=== PATIENT | male | born 1955 | race Caucasian/White ===

== ENCOUNTER → 2020-07-05 | Outpatient (CLI) | payer OTHER, MEDICARE ==
[~2020-07-05] MED LIST: ASPI325; ASPI81CH PO; Aspir 8181 MG PO; DOXE10 PO; IBUP800 PO; LOSA50 PO; LOSARTAN POTAS100 MG PO; Lisinopril2.5 MG PO; NITR.4SL SL; Norco 5-325 Ta1 EACH PO; OMEP20ER PO; Omeprazole20 M1 PO; PRAV20 PO; PREG25 PO; PREG75 PO; Percocet 5-3251 EACH PO; Pravachol40 MG PO; Pravastatin Sod40 MG PO; TUMS DUAL ACTI1 EACH PO; TUMS X-STR300 MG; Zofran Odt8 MG SL
[2020-07-07 13:12] LABS: ADENOVIRUS F 40/41 Not Detected (Not Detected); ASTROVIRUS Detected (Not Detected); C DIFFICILE TOXIN A/B Not Detected (Not Detected); CAMPYLOBACTER Not Detected (Not Detected); CRYPTOSPORIDIUM Not Detected (Not Detected); CYCLOSPORA CAYETANENSIS Not Detected (Not Detected); ENTAMOEBA HISTOLYTICA Not Detected (Not Detected); ENTEROAGGREGATIVE E COLI Not Detected (Not Detected); ENTEROPATHOGENIC E COLI Not Detected (Not Detected); ENTEROTOXIGENIC E COLI Not Detected (Not Detected); GIARDIA LAMBLIA Not Detected (Not Detected); NOROVIRUS GI/GII Not Detected (Not Detected); PLESIOMONAS SHIGELLOIDES Not Detected (Not Detected); ROTAVIRUS A Not Detected (Not Detected); SALMONELLA Not Detected (Not Detected); SAPOVIRUS Not Detected (Not Detected); SHIGA-TOXIN-PRODUCING E COLI Not Detected (Not Detected); SHIGELLA/ENTEROINVASIVE E COLI Not Detected (Not Detected); VIBRIO Not Detected (Not Detected); VIBRIO CHOLERAE Not Detected (Not Detected); YERSINIA ENTEROCOLITICA Not Detected (Not Detected)
== END | disposition home or self-care (01) ==
LOC: LAB 16:10 → LAB SHORT 16:10 → LAB FUT 07-04 14:10
PROVIDERS: Internal Medicine Gastroenterology
DX: R19.7 Diarrhea, unspecified (principal); R10.84 Generalized abdominal pain
CPT/HCPCS: 0097U

== ENCOUNTER 2020-11-21 07:52 | Day surgery (SDC) | payer OTHER, MEDICARE ==
[~2020-11-21] VITALS: Ht 185.4 cm; Wt 104.8 kg
--- NOTE | 2020-11-21 08:59 | NUR ---
Ambulatory in Day Surgery History, Chart, Medications and Allergies reviewed before start of procedure. Lungs clear T/O to Auscultation. SITE CLIPPED AND PREPPED. MED ALLERGIES CONFIRMED c DR. SINGH, ABX CHANGED.
--- NOTE | 2020-11-21 13:33 | NUR ---
PT ARRIVED TO THE ROOM FROM PACU AT 1300. PT IS ALERT, ORIENTED AND PLEASANT. PT DENIES PAIN. HE HAD SPINAL ANESTHESIA, PT STILL HAS NO SENSATION TO BLE OR MOVEMENT R/T SPINAL ANESTHESIA. PT DENIES NAUSEA. VSS. WILL CONTINUE TO MONITOR.
--- NOTE | 2020-11-21 16:12 | NUR ---
SHIFT SUMMARY PT IS POD#0 FROM L TKA WITH DR. SINGH. PT DENIES PAIN. HE HAS REGAINED SENSATION AND MOVEMENT IN BLE. PT IS TOLERATING PO. HE IS WORKING WITH PHYSICAL THERAPY. VSS. WILL MONITOR UNTIL REPORT TO ONCOMING RN.
--- NOTE | 2020-11-22 04:15 | NUR ---
SHIFT SUMMARY: PT POD#1 FOR LT TKA. AQUACEL+JIAN WRAP C/D/I WITH POLAR PACK IN PLACE. PAIN BEING MANAGED WITH 10MG OXY AND SCHEDULED TORADOL+TYLENOL PER EMAR. PT RATING PAIN 2/10 ON PAIN SCALE. PT AMBULATING TO BATHROOM AND IN HALLWAY WITH 1 ASSIST AND FWW+GB. TOLERATING PO T/O SHIFT AND DENIES N/V. VOIDING WELL. ABX COMPLETE. PLAN FOR PHYSICAL THERAPY AND POSSIBLE DISCHARGE TODAY.
[2020-11-22 05:06] LABS: BASOPHILS ABSOLUTE AUTO 0.02 K/mm3 (0.00-0.23); BASOPHILS PERCENT AUTO 0 % (0-2); EOSINOPHILS PERCENT AUTO 0 % (0-6); Hematocrit 37.3 % (37.0-53.0); Hemoglobin 12.7 g/dL (13.5-17.5); IMMATURE GRAN ABSOLUTE AUTO 0.11 K/mm3 (0.00-0.10); IMMATURE GRAN PERCENT AUTO 1 % (0-1); LYMPHOCYTES PERCENT AUTO 7 % (21-46); MONOCYTES ABSOLUTE AUTO 0.79 K/mm3 (0.16-1.47); MONOCYTES PERCENT AUTO 4 % (4-13); Mean Corpuscular HGB 29.7 pg (26.0-34.0); Mean Corpuscular Volume 87 fL (80-100); Mean Platelet Volume 9.9 fL (9.1-12.4); NEUTROPHILS ABSOLUTE AUTO 17.49 K/mm3 (1.96-9.15); NEUTROPHILS PERCENT AUTO 89 % (41-73); Platelet Count 239 K/mm3 (150-400); RDW Coefficient Variation 12.6 % (11.7-14.2); Red Blood Cell Count 4.28 M/mm3 (4.30-5.90); White Blood Cell Count 19.71 K/mm3 (4.00-11.30)
[2020-11-22 05:39] LABS: Anion Gap 5 mmol/L (6-16); Blood Urea Nitrogen 17 mg/dL (8-24); Bun/Creatinine Ratio 23.3 (12.0-20.0); CO2, Blood 28 mmol/L (21-32); Calcium, Blood 8.2 mg/dL (8.5-10.1); Chloride, Blood 107 mmol/L (98-108); Creatinine, Blood 0.73 mg/dL (0.60-1.20); Glomerular Filtration Rate >60 (60-); Glucose, Blood 131 mg/dL (70-99); Potassium, Blood 4.7 mmol/L (3.5-5.5); Sodium, Blood 140 mmol/L (136-145)
--- NOTE | 2020-11-22 07:32 | NUR ---
ASSUMED CARE: PT RESTING QUIETLY IN RECLINER AT THIS TIME WITH ICE PACK IN PLACE. DENIES NEEDS OR CONCERNS. PLAN IS FOR THERAPY THIS AM THEN HOME LATER TODAY.
--- NOTE | 2020-11-22 10:34 | NUR ---
PHYSICAL THERAPIST WITH PT IN ORTHO GYM AT THIS TIME.
--- NOTE | 2020-11-22 11:42 | NUR ---
PHYSICAL THERAPY APPROVED PT FOR DISCHARGE. IV DC'D WNL. PT GIVEN EXTRA AQUACEL DRESSINGS AND WRITTEN PRESCRIPTIONS FROM DR SINGH. GIVEN INSTRUCTIONS ON WOUND CARE AND FOLLOW UP APPOINTMENTS. DENIED FURTHER NEEDS OR CONCERNS. ESCORTED OUT VIA WHEEL CHAIR BY HOSPITAL STAFF
== END 2020-11-22 11:18 | disposition home or self-care (01) ==
LOC: ORSCMMR 07:52 → ORD 09:45 → SURS 12:31 → ORSCMMR 11-22 11:18
PROVIDERS: Orthopaedic Surgery
PROC: 8E0Y0CZ Robotic Assisted Procedure of Lower Extremity, Open Approach (ICD-10-PCS; principal; 2020-11-21 08:30)
PROC: 0SRD0JA Replacement of Left Knee Joint with Synthetic Substitute, Uncemented, Open Approach (ICD-10-PCS; principal; 2020-11-21 08:30)
DX: M17.12 Unilateral primary osteoarthritis, left knee (principal); Z23 Encounter for immunization; I10 Essential (primary) hypertension; G47.33 Obstructive sleep apnea (adult) (pediatric); Z87.891 Personal history of nicotine dependence; Z79.899 Other long term (current) drug therapy; Z79.82 Long term (current) use of aspirin; K21.9 Gastro-esophageal reflux disease without esophagitis
CPT/HCPCS: 27447; S2900; 36415; 73560-LT; 80048; 85025; 94762; 97110; 97116; 97162; A9270; C1776; J0171; J0735; J1100; J1885; J2250; J2370; J2405; J2704; J2795; J3010; J7120; Q2038

== ENCOUNTER 2021-07-10 06:06 | Day surgery (SDC) | payer OTHER, MEDICARE ==
[~2021-07-10] VITALS: Ht 185.4 cm; Wt 107.3 kg
[~2021-07-10 06:06] MED LIST changes: +CHLO25B PO; +HYDACE10B PO
--- NOTE | 2021-07-10 06:28 | NUR ---
History, Chart, Medications and Allergies reviewed before start of procedure. Patient confirms NPO status and agrees with scheduled surgery. Lungs clear T/O to Auscultation.
--- NOTE | 2021-07-10 07:22 | NUR ---
PATIENT STATES HE LEFT HIS PARTIAL DENTURES AT HOME.
--- NOTE | 2021-07-10 10:30 | NUR ---
ARRIVAL TO SURGICAL FLOOR PT ARRIVES IN HOSP BED. ALERT, ORIENTED, PLEASANT. DENIES PAIN R/T SPINAL. UNABLE TO MOVE BLE OR WIGGLE TOES. FLUIDS & SNAKCS OFFERED. PT CALLS ON CELL PHONE & DENIES NEEDS. VSS.
[2021-07-10] MEDS ORDERED: Percocet 5-3251 EACH PO (14:04)
--- NOTE | 2021-07-10 18:40 | NUR ---
SHIFT SUMMARY PT HAS DONE WELL. STRONG SPINAL BUT ABLE TO GET UP TO CHAIR w/ THERAPY & AMBULATE THIS AFTERNOON. INCREASE IN PAIN AFTER THERAPY SESSION. BETTER CONTROLLED NOW. EATING, DRINKING, & VOIDING.
--- NOTE | 2021-07-11 03:29 | NUR ---
SHIFT SUMMARY A/OX4. POD1 R TOTAL KNEE ARTHROPLASTY, AQUACEL AND JIAN WRAP IN PLACE, C/D/I. VITALS STABLE. NO NUMBNESS OR TINGLING REPORTED. PT HAS AMBULATED AND IS TOLERATING PO INTAKE, NO N/V. TOLERATING PAIN WITH PO PAIN MEDICATIONS. VOIDING WELL. WILL REPORT TO ONCOMING RN.
[2021-07-11 04:38] LABS: BASOPHILS ABSOLUTE AUTO 0.02 K/mm3 (0.00-0.23); BASOPHILS PERCENT AUTO 0 % (0-2); EOSINOPHILS ABSOLUTE AUTO 0.01 K/mm3 (0.00-0.68); EOSINOPHILS PERCENT AUTO 0 % (0-6); Hematocrit 37.7 % (37.0-53.0); Hemoglobin 12.8 g/dL (13.5-17.5); IMMATURE GRAN ABSOLUTE AUTO 0.07 K/mm3 (0.00-0.10); IMMATURE GRAN PERCENT AUTO 0 % (0-1); LYMPHOCYTES ABSOLUTE AUTO 1.61 K/mm3 (0.84-5.20); LYMPHOCYTES PERCENT AUTO 10 % (21-46); MONOCYTES ABSOLUTE AUTO 0.77 K/mm3 (0.16-1.47); MONOCYTES PERCENT AUTO 5 % (4-13); Mean Corpuscular HGB 29.3 pg (26.0-34.0); Mean Corpuscular Volume 86 fL (80-100); Mean Platelet Volume 9.8 fL (9.1-12.4); NEUTROPHILS PERCENT AUTO 85 % (41-73); Platelet Count 245 K/mm3 (150-400); RDW Standard Deviation 40.8 fL (35.1-46.3); Red Blood Cell Count 4.37 M/mm3 (4.30-5.90); White Blood Cell Count 16.88 K/mm3 (4.00-11.30)
[2021-07-11 05:23] LABS: Anion Gap 5 mmol/L (6-16); Blood Urea Nitrogen 16 mg/dL (8-24); CO2, Blood 29 mmol/L (21-32); Chloride, Blood 102 mmol/L (98-108); Creatinine, Blood 0.89 mg/dL (0.60-1.20); Glomerular Filtration Rate >60 (60-); Glucose, Blood 157 mg/dL (70-99); Potassium, Blood 4.5 mmol/L (3.5-5.5); Sodium, Blood 136 mmol/L (136-145)
--- NOTE | 2021-07-11 11:05 | NUR ---
DISCHARGE PT HAS CLEARED THERAPY. PAIN WELL CONTROLLED. EATING, DRINKING, & VOIDING WELL. DRSGS, SCRIPT, & POLAR PACK SENT w/ PT. ESCORTED OUT VIA W/C.
== END 2021-07-11 11:12 | disposition home or self-care (01) ==
LOC: ORSCMMR 06:06 → ORD 07:30 → SURS 10:16 → ORSCMMR 07-11 11:12
PROVIDERS: Orthopaedic Surgery
PROC: 8E0Y0CZ Robotic Assisted Procedure of Lower Extremity, Open Approach (ICD-10-PCS; principal; 2021-07-10 07:30)
PROC: 0SRC0JA Replacement of Right Knee Joint with Synthetic Substitute, Uncemented, Open Approach (ICD-10-PCS; principal; 2021-07-10 07:30)
DX: M17.11 Unilateral primary osteoarthritis, right knee (principal); I10 Essential (primary) hypertension; Z87.891 Personal history of nicotine dependence; G47.33 Obstructive sleep apnea (adult) (pediatric); K21.9 Gastro-esophageal reflux disease without esophagitis; Z79.82 Long term (current) use of aspirin; Z79.899 Other long term (current) drug therapy
CPT/HCPCS: 27447; S2900; 36415; 73560-RT; 80048; 85025; 94762; 97110; 97110-CQ; 97116-CQ; 97162; 97530-CQ; A9270; C1776; J0171; J0735; J1100; J1170; J1885; J2250; J2370; J2405; J2704; J2795; J3010; J7120

== ENCOUNTER → 2022-03-20 | Outpatient (CLI) | payer OTHER, MEDICARE | END | disposition home or self-care (01) | LOC: LAB SHORT 11:40 → LAB 11:40 | DX: N45.1 Epididymitis (principal) | CPT/HCPCS: 87086 ==

== ENCOUNTER 2022-09-16 13:02 | Day surgery (SDC) | payer OTHER, MEDICARE ==
[~2022-09-16] VITALS: Ht 185.4 cm; Wt 102.1 kg
[2022-09-16] MEDS ORDERED: METF500 (14:36)
[2022-09-16] MEDS ORDERED: TERB250 (14:36)
[2022-09-16] MEDS ORDERED: IBUP200 (14:37)
== END 2022-09-16 15:47 | disposition home or self-care (01) ==
LOC: ORSCSDS 13:02
PROVIDERS: Internal Medicine Gastroenterology
PROC: 0DJD8ZZ Inspection of Lower Intestinal Tract, Via Natural or Artificial Opening Endoscopic (ICD-10-PCS; principal; 2022-09-16 14:30)
DX: Z12.11 Encounter for screening for malignant neoplasm of colon (principal); Z86.010 Personal history of colon polyps; K57.30 Diverticulosis of large intestine without perforation or abscess without bleeding; G47.30 Sleep apnea, unspecified; E11.9 Type 2 diabetes mellitus without complications; I10 Essential (primary) hypertension; Z87.891 Personal history of nicotine dependence; E66.9 Obesity, unspecified; Z68.30 Body mass index [BMI] 30.0-30.9, adult; Z79.82 Long term (current) use of aspirin; Z79.84 Long term (current) use of oral hypoglycemic drugs; Z79.899 Other long term (current) drug therapy
CPT/HCPCS: 82947; J0330; J0461; J2405; J2704; J7120; Q9968

== ENCOUNTER → 2023-08-08 | Outpatient (CLI) | payer OTHER, MEDICARE ==
[~2023-08-08] MED LIST changes: +IBUP200; +METF500; +TERB250
== END | disposition home or self-care (01) ==
LOC: LAB SHORT 18:01 → LAB 18:01
DX: N39.0 Urinary tract infection, site not specified (principal)
CPT/HCPCS: 87086

== ENCOUNTER 2025-04-13 11:29 | Day surgery (SDC) | payer OTHER, MEDICARE ==
[~2025-04-13] VITALS: Ht 185.4 cm; Wt 104.3 kg
[2025-04-13] VITALS (9 sets, daily range): BP systolic 123–142; BP diastolic 70–78
[~2025-04-13 11:29] MED LIST changes: +Amaryl1 MG PO
[2025-04-13] MEDS ORDERED: EPINEPhrine HCl 1 MG / ML 30ML Vial ONE (12:06)
[2025-04-13] MEDS ORDERED: Bupivacaine 0.5% W/EPI 1:200000 SDV 30 ML Vial ONE ×2 (12:06→12:41)
[2025-04-13] MEDS ORDERED: Tranexamic Acid 100 ML IV SCH (12:15)
[2025-04-13] MEDS ORDERED: FentaNYL Citrate 50 MCG/ML 2 ML Injection ONE ×2 (12:40→13:29)
[2025-04-13] MEDS ORDERED: Midazolam HCl 1MG / ML 2ML Vial ONE (12:40)
--- NOTE | 2025-04-13 13:19 | NUR ---
Ambulatory in Day Surgery accompanied by his . History, Chart, Medications and Allergies reviewed before start of procedure. Lungs clear T/O to Auscultation. Patient confirms NPO status and agrees with scheduled surgery. Pre-Op teaching done. Pt verbalizes understanding. Patient States Post-Procedure ride home has been arranged. Pt belongings placed underneath gurney for safekeeping. Pt dentures in belongings bag. PT glasses taken to PACU for safekeeping.
--- NOTE | 2025-04-13 13:22 | NUR ---
1252: LANDY MALDONADO, ELECTRIC DEICER INSPECTOR AT BEDSIDE TO PERFORM INTERSCALENE NERVE BLOCK IN PREOP. TIMEOUT COMPLETE BY RN. PREMEDS GIVEN BY LANDY MALDONADO, SEE ANESTHESIA RECORD. 1303: BLOCK START TIME. 1310: BLOCK TIME END. VSS AND MONITORED THROUGHOUT PROCEDURE. PT ON 2L O2 VIA NC DURING PROCEDURE. PT VIRY PROCEDURE WELL.
[2025-04-13] MEDS ORDERED: SuccINYLCHOLINE Chloride 100 MG/5 ML 5MLSYR ONE (13:33)
[2025-04-13] MEDS ORDERED: Rocuronium Bromide 10 MG/ML 5ML Injection IV ONE (13:33)
[2025-04-13] MEDS ORDERED: CeFAZolin Sodium 1000 mg Vial ONE (13:33)
[2025-04-13] MEDS ORDERED: Dexamethasone Sod Phos 10 MG/ML 1ML VIAL ONE (13:33)
[2025-04-13] MEDS ORDERED: Ondansetron HCl 2 MG / ML 2ML Vial ONE (13:33)
[2025-04-13] MEDS ORDERED: Phenylephrine HCl 100 MCG/ML-NS 10MLSYR (1MG/10ML) ONE (13:34)
[2025-04-13] MEDS ORDERED: FentaNYL Citrate 50 MCG/ML 2 ML Injection IV PRN ×2 (13:55)
[2025-04-13] MEDS ORDERED: HYDROmorphone HCl/Pf 1MG SYR IV PRN ×2 (13:55)
[2025-04-13] MEDS ORDERED: Albuterol 2.5 MG/3 ML VIAL INH PRN (13:55)
[2025-04-13] MEDS ORDERED: Metoclopramide HCl 5MG / ML 2ML Vial IV PRN (13:55)
[2025-04-13] MEDS ORDERED: Ondansetron HCl 2 MG / ML 2ML Vial IV PRN (14:00)
--- NOTE | 2025-04-13 14:05 | NUR ---
04/13/25 1405 Ghulam,Blanca RIGHT INTERSCALENE BLOCK COMPLETED BY LADNY WEAVER, IN THE PREOPERATIVE SETTING.
[2025-04-13] MEDS ORDERED: Ketorolac Tromethamine 30mg Vial ONE (15:07)
[2025-04-13] MEDS ORDERED: Sugammadex Sodium 200 MG/2ML SDV (100 MG/ML) ONE (15:16)
--- NOTE | 2025-04-13 16:30 | NUR ---
ASSUMED PT CARE. PT DENIES PAIN OR NAUSEA. RIGHT SHOULDER ABD PAD C/D/I. SLING AND POLAR PACK IN PLACE. PT TOLERATING PO FOOD AND FLUIDS WELL.
--- NOTE | 2025-04-13 17:05 | NUR ---
REVIEWED DISCHARGE INSTRUCTIONS WITH PT AND HIS SPOUSE. BOTH VERBALIZE UNDERSTANDING. PT DISCHARGED TO HOME-OUT VIA WHEELCHAIR WITH BELONGINGS AND DISCHARGE INSTRUCTIONS ON HAND. PT DISCHARGED WITH POLAR PACK WELL.
== END 2025-04-13 17:05 | disposition home or self-care (01) ==
LOC: ORSCMMR 11:29 → ORD 11:29
PROVIDERS: Orthopaedic Surgery Sports Medicine
PROC: 0RNJ4ZZ Release Right Shoulder Joint, Percutaneous Endoscopic Approach (ICD-10-PCS; principal; 2025-04-13 13:00)
PROC: 0LS34ZZ Reposition Right Upper Arm Tendon, Percutaneous Endoscopic Approach (ICD-10-PCS; principal; 2025-04-13 13:00)
PROC: 0LM14ZZ Reattachment of Right Shoulder Tendon, Percutaneous Endoscopic Approach (ICD-10-PCS; principal; 2025-04-13 13:00)
DX: M75.111 Incomplete rotator cuff tear or rupture of right shoulder, not specified as traumatic (principal); M75.21 Bicipital tendinitis, right shoulder; S43.431A Superior glenoid labrum lesion of right shoulder, initial encounter; I10 Essential (primary) hypertension; E11.9 Type 2 diabetes mellitus without complications; Z79.899 Other long term (current) drug therapy; Z79.82 Long term (current) use of aspirin; Z79.84 Long term (current) use of oral hypoglycemic drugs
CPT/HCPCS: 82947; C1713; J0165; J0330; J0690; J1100; J1885; J2250; J2371; J2405; J2704; J3010; J7120